=== PATIENT | male | born 1985 | race Caucasian/White ===

== ENCOUNTER 2017-08-10 09:45 | Emergency (ER) | payer MEDICAID ==
[~2017-08-10] VITALS: Ht 172.7 cm; Wt 100.0 kg
[2017-08-10] MEDS ORDERED: KETOROLAC 30 MG/1 ML ONE (10:29)
[2017-08-10] MEDS ORDERED: KETOROLAC 30 MG/1 ML IVPush ONE (10:30)
[2017-08-10 10:38] LABS: HEMATOCRIT 46.9 % (39.2-51.8); HEMOGLOBIN 15.7 g/dL (13.7-18.0); WHITE BLOOD COUNT 12.1 x10^3/uL (3.4-10)
[2017-08-10 10:45] LABS: ASPARTATE AMINO TRANSFERASE 20 U/L (15-37); BLOOD UREA NITROGEN 6 mg/dL (7-18)
[2017-08-10 12:29] VITALS: BP 117/72
[2017-08-10] MEDS ORDERED: morphine SULFATE 10 MG/ML, 1ML ONE (12:49)
[2017-08-10] MEDS ORDERED: morphine SULFATE 10 MG/ML, 1ML IVPush ONE (13:00)
== END 2017-08-10 14:01 | disposition home or self-care (01) ==
LOC: ED 13:36
DX: N50.811 Right testicular pain (principal)
CPT/HCPCS: 36415; 76870; 80053; 81003; 85025; 96374; 96375; 99285; J1885; J2270

== ENCOUNTER 2017-08-14 12:59 | Emergency (ER) | payer MEDICAID ==
[~2017-08-14] VITALS: Ht 172.7 cm; Wt 99.0 kg
[2017-08-14] MEDS ORDERED: SODIUM CHLORIDE 0.9% 1,000 ML IV ONE (13:20)
[2017-08-14] MEDS ORDERED: ONDANSETRON 2MG/ML, 2ML IVPush ONE (13:30)
[2017-08-14] MEDS ORDERED: SODIUM CHLORIDE 0.9% 1,000ML IVBOLUS ONE (13:30)
[2017-08-14] MEDS ORDERED: KETOROLAC 30 MG/1 ML IVPush ONE (13:30)
[2017-08-14] MEDS ORDERED: SODIUM CHLORIDE FLUSH 10ML SYR IVF ONE (13:30)
[2017-08-14] MEDS ORDERED: KETOROLAC 30 MG/1 ML ONE (13:39)
[2017-08-14] MEDS ORDERED: ONDANSETRON 2MG/ML, 2ML ONE (13:39)
[2017-08-14 13:52] LABS: HEMATOCRIT 47.6 % (39.2-51.8); HEMOGLOBIN 16.4 g/dL (13.7-18.0); WHITE BLOOD COUNT 11.5 x10^3/uL (3.4-10)
[2017-08-14 14:06] LABS: ASPARTATE AMINO TRANSFERASE 21 U/L (15-37); BLOOD UREA NITROGEN 7 mg/dL (7-18)
[2017-08-14 15:34] VITALS: BP 130/73
== END 2017-08-14 16:31 | disposition home or self-care (01) ==
LOC: ED 14:37
DX: R10.84 Generalized abdominal pain (principal); G89.29 Other chronic pain
CPT/HCPCS: 36415; 74176; 80053; 81003; 85025; 96361; 96374; 96375; 99285; J1885; J2405; J7030